=== PATIENT | female | born 1965 | race Caucasian/White ===

== ENCOUNTER 2017-09-08 18:08 | Emergency (ER) | payer OTHER ==
[~2017-09-08] VITALS: Ht 160 cm; Wt 60.3 kg
[~2017-09-08 18:08] MED LIST: AMITRIPTYLINE H50 M2 PO; CIPRO500 M1 PO; CRESTOR5 M1 PO; GABAPENTIN300 M2 PO; PYRIDIUM100 M1 PO; PYRIDIUM200 M1 PO; VITAMIN D250000 UNIT PO; ZYRTEC10 M6 PO
--- NOTE | 2017-09-08 20:51 | ED GI/GU/ABDOMINAL COMPLAINT ---
History of Present Illness General Chief Complaint: General Adult Stated Complaint: ?UTI Source: patient Exam Limitations: no limitations Vital Signs & Intake/Output Vital Signs & Intake/Output Vital Signs Date Time Temp Pulse Resp B/P B/P Pulse O2 O2 Flow FiO2 Mean Ox Delivery Rate 09/08 2054 98.8 88 16 122/78 100 Room Air 09/08 2024 Room Air 09/08 1819 99.3 110 18 132/85 99 Room Air ED Intake and Output 09/09 0000 09/08 1200 Intake Total 0 Output Total Balance 0 Intake, Oral 0 Patient 133 lb Weight Weight Reported by Patient Measurement Method Allergies Coded Allergies: No Known Allergies (07/23/15) Triage Note: 51 Y/O FEMALE C/O UTI SYMTPOMS (URGENCY AND FREQUENCY) X 2 DAYS. ALSO C/O PAIN WITH SEXUAL INTERCOURSE X 2 EPISODES. DENIES VAGINAL BLEEDING/DISCHARGE. DENIES ABDOMINAL PAIN. AFEBRILE. Triage Nurses Notes Reviewed? yes ? n Is pt currently ? No HPI: 51-year-old female presented to the emergency department reporting 2 days of dysuria and urinary frequency. She also reports that about 1 week ago she had painful intercourse with her . She states again last night she had painful intercourse to the point where upon initial insertion she had significant pain. She states that her periods have tapered off and believe she may be menopausal at this point She does have a [employer] provider however she is unable to get there this next week. She denies any vaginal discharge or odor. (Jayden HARRELL,Raya) Reconcile Medications Amitriptyline HCl 50 MG TABLET 1 TAB PO QPM HEADACHES (Reported) Cetirizine HCl (Zyrtec) 10 MG CAPSULE 1 CAP PO DAILY DERMATOGRAPHISM ( Reported) Ciprofloxacin HCl (Cipro) 500 MG TABLET 1 TAB PO BID UTI Ergocalciferol (Vitamin D2) (Vitamin D2) 50,000 UNIT CAPSULE 1 CAP PO Q2W SUPPLEMENT (Reported) Gabapentin 300 MG CAPSULE 1 CAP PO 4 TIMES/DAY NEUROPATHY (Reported) Nitrofurantoin Monohyd/M-Cryst (Macrobid 100 MG Capsule) 100 MG CAPSULE 1 CAP PO BID uti with food Phenazopyridine HCl (Pyridium) 200 MG TABLET 1 TAB PO TID uti Phenazopyridine HCl (Pyridium) 100 MG TABLET 1 TAB PO TID DYSURIA TAKE WITH FOOD AND NOTE THAT YOUR URINE MAY CHANGE ORANGE Rosuvastatin Calcium (Crestor) 5 MG TABLET 1 TAB PO DAILY CHOLESTEROL ( Reported) (Kwame MCKNIGHT,Amilcar Acevedo) Past History Travel History Traveled to [place] past 21 day No Medical History Any Pertinent Medical History? see below for history Neurological: peripheral neuropathy EENT: NONE Cardiovascular: hyperlipidemia Respiratory: NONE Gastrointestinal: NONE Hepatic: NONE Renal: nephrolithiasis Musculoskeletal: NONE Psychiatric: NONE Endocrine: NONE Surgical History Surgical History: non-contributory Psychosocial History What is your primary language Kittitian Tobacco Use: Never used Family History Hx Contributory? No (Raya Lemos) Review of Systems Review of Systems Constitutional: Reports: see HPI. EENTM: Reports: no symptoms. Respiratory: Reports: no symptoms. Cardiovascular: Reports: no symptoms. GI: Reports: no symptoms. Genitourinary: Reports: see HPI. Musculoskeletal: Reports: no symptoms. Skin: Reports: no symptoms. Neurological/Psychological: Reports: no symptoms. Hematologic/Endocrine: Reports: no symptoms. Immunologic/Allergic: Reports: no symptoms. All Other Systems: Reviewed and Negative (Raya Lemos) Physical Exam Physical Exam General Appearance: well developed/nourished, no apparent distress, alert, awake , comfortable Head: atraumatic, normal appearance Eyes: Bilateral: normal appearance. Ears, Nose, Throat, Mouth: hearing grossly normal Neck: full range of motion Respiratory: no respiratory distress Gastrointestinal: normal bowel sounds, soft, non-tender Pelvic: normal bimanual exam, no cerv. motion tender, no masses, atrophic vulva/ vagina. minimally teneder d/t loss of elasticity Back: no vertebral tenderness Extremities: normal range of motion Neurologic/Psych: no motor/sensory deficits, awake, alert, oriented x 3, normal gait, normal mood/affect Skin: intact, normal color, warm/dry Core Measures ACS in differential dx? No Sepsis Present: No Sepsis Focused Exam Completed? No (Raya Lemos) Progress Differential Diagnosis: PID/cervicitis, UTI/pyelo Plan of Care: Orders Procedure Date/time Status CHLAMYDIA-GC DNA PROBE 09/08 2054 Active Add-on Test (ER Only) 09/08 2052 Active CULTURE,URINE 09/08 2052 Active GENITAL CULTURE 09/08 2052 Active URINALYSIS 09/08 1818 Complete Laboratory Tests 09/08/17 1837: Urine Color YEL, Urine Clarity CLEAR, Urine pH 6.0, Ur Specific [place] 1.010, Urine Protein NEG, Urine Ketones NEG, Urine Nitrite NEG, Urine Bilirubin NEG, Urine Urobilinogen 0.2, Ur Leukocyte Esterase LARGE H, Ur Microscopic SEDIMENT EXAMINED, Urine RBC RARE, Urine WBC 15-25 H, Ur Epithelial Cells RARE, Urine Bacteria MOD H, Urine Mucus FEW, Urine Hemoglobin SMALL H, Urine Glucose NEG Microbiology 09/08 2054 GENITAL: GC DNA Probe - RECD 09/08 2054 GENITAL: Chlamydia DNA Probe ([facility]) - RECD 09/08 2054 GENITAL: Genital Culture - RECD 09/08 1836 URINE ROUT: Urine Culture - RECD 51 year old female with 2 day history of dysuria and urinary frequency with bacteriuruia. Sending rx for macrobid and pyridium, explained use. Performed vaginal culture and gc/chlam culture, d/w pt likely related atrophic vaginitis d /t perimenopausal. She should follow up with OBGYN outpatient. Return to the ED with new or worsening symptoms. Initial ED EKG: none (Raya Lemos) Departure Departure Disposition: HOME OR SELF CARE Condition: Stable Clinical Impression Primary Impression: UTI (urinary tract infection) Qualifiers: Urinary tract infection type: acute cystitis Hematuria presence: without hematuria Qualified Code: N30.00 - Acute cystitis without hematuria Secondary Impressions: Atrophic vaginitis Referrals: Nieves Shaffer MD (PCP/Family) Additional Instructions: Take Macrobid and Pyridium as needed. Follow-up with her [employer] specialist for atrophic vaginitis. Return to the emergency department with any new or worsening symptoms. Departure Forms: Customer Survey General Discharge Information Prescriptions: Current Visit Scripts Nitrofurantoin Monohyd/M-Cryst (Macrobid 100 MG Capsule) 1 CAP PO BID #14 CAP with food Phenazopyridine HCl (Pyridium) 1 TAB PO TID #9 TAB (Raya Lemos) PA/[employer] Co-Sign Statement Statement: ED Attending supervision documentation- [] I saw and evaluated the patient. I have also reviewed all the pertinent lab results and diagnostic results. I agree with the findings and the plan of care as documented in the PA's/[employer]'s documentation. [x] I have reviewed the ED Record and agree with the PA's/[employer]'s documentation. [] Additions or exceptions (if any) to the PAs/[employer]PER[employer]'s note and plan are summarized below: [] (Kwame MCKNIGHT,Amilcar Acevedo)
[2017-09-08 20:55] VITALS: BP 122/78
[2017-09-08] MEDS ORDERED: PYRIDIUM200 M1 PO (20:56)
[2017-09-08] MEDS ORDERED: MACROBID 100 M100 MG PO (20:56)
== END 2017-09-08 21:03 ==
LOC: ERH 18:08
DX: N39.0 Urinary tract infection, site not specified (principal); N95.2 Postmenopausal atrophic vaginitis
CPT/HCPCS: 87070; 81001; 87040; 87086; 87491; 87591